=== PATIENT | female | born 1940 | race African-American/Black ===

== ENCOUNTER → 2020-11-19 | Outpatient (CLI) | payer MEDICARE ==
[2014-04-04 11:00] VITALS: BP 131/68
[~2020-11-19] MED LIST: ALPR0.25 PO; ASPI-630 PO; CETI10TA74 PO; DILT120C99 PO; HYDR-2145 PO; HYDR-2761 PO; LEVO112T49 PO; LISI20TA18 PO; MECL-75 PO; MONT10TA49 PO; MULT-658 PO; NITR0.4T24 SL; OMEP20CA16 PO; POTA20TA4 PO; PRAV20TA PO; TRAM50TA PO; UBID1CAP41 PO; WARF3TAB50 PO
--- NOTE | 2020-11-19 13:17 | KCIC ---
INDICATION: Osteoporosis screening. Postmenopausal evaluation COMPARISON: None. TECHNIQUE: Bone densitometry was performed through the lumbar spine and proximal femur. FINDINGS: Lumbar Spine: BMD: 1.39 T-Score: 3.1 Proximal Femur: BMD: 1.16 T-Score: 1.8 IMPRESSION: 1. Lumbar spine falls within the normal range. 2. Proximal femur falls within the normal range. Electronically signed by: Jr Renee MD (11/19/2020 1:14 PM) [id number]
== END ==
LOC: KCIC DEXA 10:32
PROVIDERS: ATTEND Family Medicine Geriatric Medicine
DX: Z78.0 Asymptomatic menopausal state (principal)
CPT/HCPCS: 77080